=== PATIENT | female | born 1965 | race Caucasian/White ===

== ENCOUNTER 2016-06-20 13:58 | Emergency (ER) | payer OTHER ==
[2016-06-20 14:08] VITALS: RESP 16
--- NOTE | 2016-06-20 14:45 | UCPHY ---
H & P Patient Type: Established Chief Complaint Nursing Narrative: R ear pain since last night getting worse today. Feels she might have ear infection. denies fever or drainage. HPI/ROS: CHIEF COMPLAINT: Right ear pain. HISTORY OF PRESENT ILLNESS: The patient is a 51-year-old otherwise healthy female who presents with right ear pain since yesterday. She denies associated fever, sore throat, rhinorrhea, eye discharge, sinus drainage, or recent travel /deep sea diving experiences. No ear drainage or hearing loss. No tinnitus. She has no history of similar symptoms. She has been treating the discomfort with Claritin and Ibuprofen. REVIEW OF SYSTEMS: A ten point review of systems was performed and is negative with the exception of the items mentioned in the HPI. Source: Patient Exam Limitations: No limitations - Personal History LMP (Females 10-55): Post Menopausal Current Tetanus Diphtheria and Acellular Pertussis (TDAP): Yes - Medical/Surgical History Hx Asthma: No Hx Chronic Respiratory Disease: No Hx Diabetes: No Hx Cardiac Disease: No Hx Renal Disease: No Hx Cirrhosis: No Hx Alcoholism: No Hx HIV/AIDS: No Hx Splenectomy or Spleen Trauma: No Other PMH: remote hx of cervical cancer - Family History Significant Family History: No pertinent family hx - Social History Smoking Status: Never smoked Additional Social History: Nonsmoker. - Physical Exam Exam: General Appearance: Alert. Vital signs reviewed. Head: No mastoid tenderness, erythema, swelling. Eyes: Pupils equal and round, no conjunctival injection, no discharge. Anicteric. ENT, Mouth: Mucous membranes are moist, no oropharyngeal erythema or edema. No tooth pain with percussion. EACs normal, TMs normal--no erythema, bulging, vesicles. No pain with movement of pinna. Neck: No lymphadenopathy, supple. Respiratory: Lungs are clear to auscultation; no wheezes, rales, or rhonchi. Cardiovascular: Regular rate and rhythm; no murmur, rub, or gallop. Gastrointestinal: Abdomen is soft and nontender, no masses or organomegaly, bowel sounds normal. Skin: Warm and dry, no rashes on exposed skin, normal color. Back: Nontender to palpation over the thoracolumbar spine. No CVAT. Extremities: No lower extremity edema, no calf tenderness or swelling. Neurological: Alert and oriented. Moving all four extremities easily and equally. Psychiatric: Normal affect. Constitutional: Initial Vital Signs Temperature (C) 36.4 C 06/20/16 14:07 Heart Rate 80 06/20/16 14:07 Respiratory Rate 16 06/20/16 14:07 Blood Pressure 133/88 H 06/20/16 14:07 O2 Sat (%) 97 06/20/16 14:07 O2 Delivery Mode Room Air Allergies/Adverse Reactions: cephalexin [From Keflex] Allergy (Verified 06/20/16 14:06) fentanyl Allergy (Verified 06/20/16 14:05) meperidine HCl [From Demerol] Allergy (Verified 06/20/16 14:05) Home Medications: Medication Instructions Recorded Hydrocodone/APAP 5/325 [[place] 1 - 2 tab PO Q4 PRN #10 tab 06/20/16 5/325 (RX)] Multivitamin 06/20/16 Medical Decision Making ED Course/Re-evaluation: 51-year-old female presents with right ear pain since yesterday. She denies any associated symptoms. No barotrauma. She has a normal exam. Her right TM has a normal appearance. She has no recent head trauma or dental procedures. I do not see any evidence of infection in this patient. I don't think antibiotic treatment would help. I have prescribed [place] for pain control and she understands to follow up with her PCP for reevaluation of ongoing symptoms. Differential Diagnosis: DDX includes but is not limited to external otitis, otitis media, barotrauma, Departure - Departure Disposition: Home, Routine, Self-Care Clinical Impression: Right ear pain Condition: Good Instructions: Earache (ED) Additional Instructions: Follow up with your primary care provider this week for ongoing ear pain. Take Vicodin as prescribed for ear pain. Return for any serious worsening of condition. Referrals: ARPITA ARTEAGA [Primary Care Provider] - As per Instructions Prescriptions: Hydrocodone/APAP 5/325 [[place] 5/325 (RX)] 1 - 2 tab PO Q4 PRN #10 tab PRN Reason: pain - PQRS PQRS Measurement: Does not apply Report Scribed for: Daniella Catalan Report Scribed by: Sergei Moseley Date of Report: 06/20/16 Time of Report: 14:49 Physician Review and Approval Statement: 06/20/16 14:45 Portions of this note were transcribed by the medical malpractice paralegal. I, Dr. Daniella Catalan, personally performed the history, physical exam, and medical decision- making; and confirmed the accuracy of the information in the transcribed note.
[2016-06-20 15:02] VITALS: BP 128/84; PULSE 81; TEMP 97.9; O2SAT 96
== END 2016-06-20 15:00 | disposition home or self-care (01) ==
LOC: CED 13:58
DX: H92.01 Otalgia, right ear (principal)
CPT/HCPCS: 99214-PO; G0463-PO

== ENCOUNTER → 2017-08-05 | Outpatient (CLI) | payer OTHER | LOC: FIMAGING 15:47 | PROVIDERS: ATTEND Family Medicine | DX: N94.9 Unspecified condition associated with female genital organs and menstrual cycle (principal); N85.2 Hypertrophy of uterus; N83.9 Noninflammatory disorder of ovary, fallopian tube and broad ligament, unspecified ==

== ENCOUNTER → 2017-08-12 | Outpatient (CLI) | payer OTHER | LOC: FIMAGING 07:48 | PROVIDERS: ATTEND Family Medicine | DX: Z12.31 Encounter for screening mammogram for malignant neoplasm of breast (principal) ==

== ENCOUNTER 2017-10-10 10:45 | Day surgery (SDC) | payer OTHER ==
[2017-10-10] MEDS ORDERED: LR 1,000 ML IV ONE (11:21)
--- NOTE | 2017-10-10 12:39 | PDGENHP ---
History & Physical Chief Complaint: Screening colonoscopy History of Present Illness: Screening colonoscopy with MAC Pertinent Past, Social, Family History: PMH: cervical cancer. PSH: EUGENIO. FH: negative for colon cancer. SH: No Tob or ETOH Relevant Physical Exam: NAD. NC/AT. OP clear. Neck supple. CTA B/L. RRR without m/r/g. GI soft. NABS. NT/ND. No HSM. Normal gait and station. Normal ROM Cardiorespiratory Assessment: ASA II. Colonoscopy with MAC
[2017-10-10] MEDS ORDERED: PROPOFOL 200 MG/20 ML VIAL ONE ×2 (12:50)
[2017-10-10] MEDS ORDERED: LIDOCAINE 2% 100 MG/5 ML SYR ONE (12:52)
[2017-10-10] MEDS ORDERED: ONDANSETRON 4 MG/2 ML VIAL IVP PRN (13:10)
[2017-10-10] MEDS ORDERED: PHENYLEPHRINE HCL 100 MCG/ML SYR IVP PRN (13:10)
[2017-10-10] MEDS ORDERED: DEXAMETHASONE 4 MG/ML VIAL IVP PRN (13:10)
[2017-10-10] MEDS ORDERED: PROMETHAZINE HCL 25 MG/ML INJ IVP PRN (13:10)
[2017-10-10] MEDS ORDERED: NALOXONE HCL 0.4 MG/ML INJ IVP PRN (13:10)
[2017-10-10] MEDS ORDERED: LR 500 ML IV PRN (13:10)
[2017-10-10] MEDS ORDERED: ACETAMINOPHEN 500 MG TAB PO PRN (13:10)
[2017-10-10] MEDS ORDERED: LABETALOL HCL 5 MG/ML 20 ML MDV IVP PRN (13:10)
[2017-10-10] MEDS ORDERED: ALBUTEROL 3 ML DEYVIAL IH PRN (13:10)
--- NOTE | 2017-10-10 13:10 | PDANEPAE ---
ANE History of Present Illness colonsocopy ANE Past Medical History - Cardiovascular History Hx Hypertension: No Hx Arrhythmias: No Hx Chest Pain: No Hx Coronary Artery / Peripheral Vascular Disease: No Hx CHF / Valvular Disease: No Hx Palpitations: No - Pulmonary History Hx COPD: No Hx Asthma/Reactive Airway Disease: No Hx Recent Upper Respiratory Infection: No Hx Oxygen in Use at Home: No Hx Sleep Apnea: No Sleep Apnea Screening Result - Last Documented: Negative - Neurologic History Hx Cerebrovascular Accident: No Hx Seizures: No Hx Dementia: No - Endocrine History Hx Diabetes: No - Renal History Hx Renal Disorders: No - Liver History Hx Hepatic Disorders: No - Neurological & Psychiatric Hx Hx Neurological and Psychiatric Disorders: No - Cancer History Hx Cancer: No Cancer History Comment: CERVICAL CA AGE 25. RECURRENCE 6 YRS AGO - RADIATION AND CHEMO - Congenital Disorder History Hx Congenital Disorders: No - GI History Hx Gastrointestinal Disorders: No - Other Health History Other Health History: NEG - Chronic Pain History Chronic Pain: No - Surgical History Prior Surgeries: C SECTION. TUBAL LIGATION ANE Review of Systems Review of Systems: - Exercise capacity METS (RN): 5 METS ANE Patient History - Allergies Allergies/Adverse Reactions: cephalexin [From Keflex] Allergy (Verified 10/03/17 14:47) Hives fentanyl Allergy (Verified 10/03/17 14:47) Hives latex Allergy (Verified 10/03/17 14:47) Rash meperidine HCl [From Demerol] Allergy (Verified 10/03/17 14:47) Hives - Home Medications Home medications: home medication list seen and reviewed Home Medications: Multivitamin 06/20/16 [Last Taken Unknown] Calcium 10/03/17 [Last Taken 10/03/17] - NPO status NPO Status: no food or drink >8 hours NPO Since - Liquids (Date): 10/10/17 NPO Since - Liquids (Time): 03:00 NPO Since - Solids (Date): 10/09/17 NPO Since - Solids (Time): 08:00 - Anes Hx Anes Hx: no prior problems - Smoking Hx Smoking Status: Never smoked - Alcohol Use Alcohol Use: Rarely - Family Anes Hx Family Anes Hx: none Family Hx Anesthesia Complications: NONE ANE Labs/Vital Signs - Vital Signs Blood Pressure: 122/88 Heart Rate: 65 Respiratory Rate: 15 O2 Sat (%): 96 Height: 165.1 cm Weight: 67.132 kg ANE Physical Exam - Airway Neck exam: FROM Mallampati Score: Class 2 Mouth exam: normal dental/mouth exam - Pulmonary Pulmonary: no respiratory distress - Cardiovascular Cardiovascular: regular rate and rhythym - ASA Status ASA Status: I ANE Anesthesia Plan Anesthesia Plan: GA with mask Total IV Anesthesia: Yes Urgent/Emergent Case: Lexus bridges completed preop but documented later for safe timely pt care
--- NOTE | 2017-10-10 13:20 | GIREPORT ---
Formerly [facility] Surgical Services - Endoscopy Department Patient Name: Lenora Monroe Procedure Date: 10/10/2017 12:21 PM Patient Type: Outpatient Attending / ER Physician: Chapin Pruitt MD Procedure: Colonoscopy Indications: Screening for colorectal malignant neoplasm Providers: Chapin Pruitt MD Medicines: Propofol per Anesthesia Complications: No immediate complications. Description of Procedure: After obtaining informed consent, the scope was passed under direct vis ion. Throughout the procedure, the patient's blood pressure, pulse, and oxyg en saturations were monitored continuously. The Colonoscope was introduced through the anus and advanced to the cecum, identified by appendiceal orifice and ileocecal valve. The colonoscopy was performed without difficulty. The patient tolerated the procedure well. The quality of th e bowel preparation was excellent. The ileocecal valve, appendiceal orifi ce, and rectum were photographed. Findings: The perianal and digital rectal examinations were normal. Pertinent negatives include normal sphincter tone and no palpable rectal lesions. A 6 mm polyp was found in the transverse colon. The polyp was sessile. The polyp was removed with a cold biopsy forceps. Resection and retrieval w ere complete. Estimated Blood Loss: Estimated blood loss: none. Post Op Diagnosis: - One 6 mm polyp in the transverse colon, removed with a cold biopsy forceps. Resected and retrieved. Recommendation: - Await pathology results. - Repeat colonoscopy in 5 years for surveillance. - Resume previous diet. - Continue present medications. - Patient has a contact number available for emergencies. The signs and symptoms of potential delayed complications were discussed with the pat ient. Return to normal activities tomorrow. Written discharge instructions we re provided to the patient. - Thank you for allowing me to be involved in the care of your patient. Attending Participation: I personally performed the entire procedure without the assistance of a fellow, resident or surg ical assistant reading teacher. Chapin Pruitt MD Chapin Pruitt MD 10/10/2017 1:19:39 PM This report has been signed electronicallyDavid MD Sonal Number of Addenda: 0 Note Initiated On: 10/10/2017 12:21 PM Total Procedure Duration Time 0 hours 17 minutes 40 seconds [email or web address]
--- NOTE | 2017-10-10 13:54 | POSTANESTH ---
Post Anesthetic Evaluation Cardiovascular Status: Normal, Stable Respiratory Status: Normal, Stable Level of Consciousness/Mental Status: Can Participate in Eval Pain Control: Adequate, Prn Tx Ordered Nausea/Vomiting Control: Adequate, Prn Tx Ordered Complications Possibly Related to Anesthesia: None Noted
[2017-10-10 14:38] VITALS: BP 126/90
== END 2017-10-10 14:41 | disposition home or self-care (01) ==
LOC: FSGY 10:45
PROVIDERS: ATTEND Internal Medicine Gastroenterology
PROC: 0DBL8ZX Excision of Transverse Colon, Via Natural or Artificial Opening Endoscopic, Diagnostic (ICD-10-PCS; principal; 2017-10-10 12:45)
DX: D12.3 Benign neoplasm of transverse colon (principal)
CPT/HCPCS: J2001; J2704

== ENCOUNTER → 2017-11-08 | Outpatient (CLI) | payer OTHER | LOC: FIMAGING 06:50 | PROVIDERS: ATTEND Family Medicine | DX: N83.291 Other ovarian cyst, right side (principal); D25.9 Leiomyoma of uterus, unspecified ==

== ENCOUNTER 2018-01-13 06:40 | Day surgery (SDC) | payer OTHER ==
[2018-01-13] MEDS ORDERED: LR 1,000 ML IV ONE (07:06)
[2018-01-13] MEDS ORDERED: SCOPOLAMINE HYDROBROMIDE 1 MG/3 DAYS PATCH TD ONE (07:57)
[2018-01-13] MEDS ORDERED: MIDAZOLAM 2 MG/2 ML VIAL IVP ONE (07:57)
--- NOTE | 2018-01-13 08:04 | PDANEPAE ---
ANE History of Present Illness pelvic pain ANE Past Medical History - Cardiovascular History Hx Hypertension: No Hx Arrhythmias: No Hx Chest Pain: No Hx Coronary Artery / Peripheral Vascular Disease: No Hx CHF / Valvular Disease: No Hx Palpitations: No - Pulmonary History Hx COPD: No Hx Asthma/Reactive Airway Disease: No Hx Recent Upper Respiratory Infection: No Hx Oxygen in Use at Home: No Hx Sleep Apnea: No Sleep Apnea Screening Result - Last Documented: Negative - Neurologic History Hx Cerebrovascular Accident: No Hx Seizures: No Hx Dementia: No - Endocrine History Hx Diabetes: No Hypothyroid: No Hyperthyroid: No Obesity: no - Renal History Hx Renal Disorders: No - Liver History Hx Hepatic Disorders: No - Neurological & Psychiatric Hx Hx Neurological and Psychiatric Disorders: No - Cancer History Hx Cancer: Yes Cancer History Comment: CERVICAL CA AGE 25. RECURRENCE 6 YRS AGO - RADIATION AND CHEMO - Congenital Disorder History Hx Congenital Disorders: No - GI History GERD: no Hx Gastrointestinal Disorders: Yes Gastrointestinal History Comment: POLYPS - Other Health History Other Health History: OVARIAN CYST - Chronic Pain History Chronic Pain: Yes (RT SIDE OF ABDOMEN) - Surgical History Prior Surgeries: COLONOSCOPY 10/2017. C SECTION. TUBAL LIGATION ANE Review of Systems Review of Systems: - Exercise capacity METS (RN): 5 METS ANE Patient History - Allergies Allergies/Adverse Reactions: cephalexin [From Keflex] Allergy (Verified 10/03/17 14:47) Hives fentanyl Allergy (Verified 10/03/17 14:47) Hives latex Allergy (Verified 10/03/17 14:47) Rash meperidine HCl [From Demerol] Allergy (Verified 10/03/17 14:47) Hives - Home Medications Home Medications: Multivitamins [Multivitamin (*)] 1 each PO DAILY 06/20/16 [Last Taken 01/09/18] Calcium Carbonate [Oyster Shell Calcium 500 mg (*)] 500 mg PO DAILY 10/03/17 [ Last Taken 01/09/18] Acetaminophen [Tylenol 325mg (*)] 325 mg PO DAILY PRN 01/02/18 [Last Taken 01/09] Ibuprofen [Motrin (*)] 200 mg PO DAILY PRN 01/02/18 [Last Taken 01/09/18] - NPO status NPO Since - Liquids (Date): 01/12/18 NPO Since - Liquids (Time): 03:00 NPO Since - Solids (Date): 01/12/18 NPO Since - Solids (Time): 20:00 - Anes Hx Anes Hx: no prior problems - Smoking Hx Smoking Status: Never smoked - Family Anes Hx Family Anes Hx: none Family Hx Anesthesia Complications: NONE ANE Labs/Vital Signs - Vital Signs Blood Pressure: 119/88 Heart Rate: 82 Respiratory Rate: 15 O2 Sat (%): 96 Height: 165.1 cm Weight: 65.771 kg ANE Physical Exam - Airway Neck exam: FROM Mallampati Score: Class 1 Mouth exam: normal dental/mouth exam - Pulmonary Pulmonary: no respiratory distress - Cardiovascular Cardiovascular: regular rate and rhythym - ASA Status ASA Status: II ANE Anesthesia Plan Anesthesia Plan: general endotracheal anesthesia
[2018-01-13] MEDS ORDERED: ONDANSETRON 4 MG/2 ML VIAL ONE (08:05)
[2018-01-13] MEDS ORDERED: PROPOFOL 200 MG/20 ML VIAL ONE (08:05)
[2018-01-13] MEDS ORDERED: ROCURONIUM 50 MG/5 ML VIAL ONE ×2 (08:05→09:13)
[2018-01-13] MEDS ORDERED: HYDROmorphONE/DILAUDID 2 MG/ML INJ ONE (08:05)
[2018-01-13] MEDS ORDERED: LIDOCAINE 2% 5 ML SDV ONE (08:06)
[2018-01-13] MEDS ORDERED: DEXAMETHASONE 4 MG/ML VIAL ONE ×2 (08:06)
[2018-01-13] MEDS ORDERED: BUPIVACAINE/EPI 0.5% 30 ML SDV ONE (08:09)
--- NOTE | 2018-01-13 08:21 | PDGENHP ---
History & Physical Chief Complaint: Adnexal mass History of Present Illness: Lenora is a 52 yo perimenopausal female who I met with in clinic regarding adnexal mass, assymptomatic. We discussed concern for cancer is low, but discussed RBA of laparoscopic removal. If needing to remove that ovary, she would like to remove both ovaries. Pertinent Past, Social, Family History: Non-contributory. Relevant Physical Exam: NAD, pleasant. Belly soft, NT/ND. Assessment and Plan Assessment: Preop: LS BSO, for unilateral adnexal mass. - Routine preop orders, no need for abx. - Likely home from PACU after 1-2 hours. - Cyst will be sent for permanent, not frozen. AMRIK
[2018-01-13] MEDS ORDERED: KETOROLAC 30 MG/1 ML SDV ONE (08:54)
[2018-01-13] MEDS ORDERED: SUGAMMADEX SODIUM 200 MG/2 ML VIAL IVP ONE (09:38)
[2018-01-13] MEDS ORDERED: PROMETHAZINE HCL 25 MG/ML INJ IVP PRN (09:49)
[2018-01-13] MEDS ORDERED: ALBUTEROL 3 ML DEYVIAL IH PRN (09:49)
[2018-01-13] MEDS ORDERED: LABETALOL HCL 5 MG/ML 20 ML MDV IVP PRN (09:49)
[2018-01-13] MEDS ORDERED: NALOXONE HCL 0.4 MG/ML INJ IVP PRN (09:49)
[2018-01-13] MEDS ORDERED: HYDROmorphONE/DILAUDID 2 MG/ML INJ IVP PRN (09:49)
[2018-01-13] MEDS ORDERED: LR 500 ML IV PRN (09:49)
[2018-01-13] MEDS ORDERED: ACETAMINOPHEN 500 MG TAB PO PRN (09:49)
[2018-01-13] MEDS ORDERED: METOCLOPRAMIDE 10 MG/2 ML VIAL IVP PRN (09:49)
[2018-01-13] MEDS ORDERED: oxyCODONE IR 5 MG TAB PO PRN (09:49)
--- NOTE | 2018-01-13 09:59 | POSTOPPROG ---
Post Op Note Date of Operation: 01/13/18 Surgeon: Surjit Barker
[2018-01-13 10:50] VITALS: BP 122/79
[2018-01-14] MEDS ORDERED: PATCH REMOVAL 1 EA PATCH TD ONE (07:58)
== END 2018-01-13 11:21 | disposition home or self-care (01) ==
LOC: F3N 06:40 → UNDOADMOB 06:40 → FSGY 06:40 → EDSTATUS 08:15 → UNDODISOB 11:21 → FSGY 11:21
PROVIDERS: ATTEND Obstetrics & Gynecology
DX: N83.01 Follicular cyst of right ovary (principal); N83.292 Other ovarian cyst, left side; N83.8 Other noninflammatory disorders of ovary, fallopian tube and broad ligament
CPT/HCPCS: J1100; J1170; J1885; J2250; J2405; J2704

== ENCOUNTER 2018-02-04 21:28 | Observation (INO) | payer OTHER ==
--- NOTE | 2018-02-04 21:46 | EDPHY ---
H & P Smoking Status: Never smoked Time Seen by Provider: 02/04/18 21:41 HPI/ROS: Chief complaint. Abdominal pain HPI. Patient is a 52-year-old female with left-sided abdominal pain. She had an ultrasound in November which showed a complex cystic lesion on the right ovary. On January 13 she had laparoscopic surgery for the adnexal mass and had bilateral salpingo oophorectomy. 10 days ago she had sharp pain at the left lower laparoscopic site. She saw her surgeon who felt that may be a pulled muscle in indeed the pains seem to somewhat get better. However last evening she vomited and has worsening abdominal pain that is now to the left mid abdomen and radiating through to her back. It hurts with movement and lying down stretched out. She had chills last night but has not had a fever. She has no urinary symptoms. No chest pain or shortness of breath. ROS 10 systems were reviewed and negative with the exception of the elements mentioned in the history of present illness (Roosevelt Garcia) Past Medical/Surgical History: Recent bilateral salpingo oophorectomy (Roosevelt Garcia) Social History: Single, nonsmoker, no alcohol (Roosevelt Garcia) Physical Exam: General Appearance: Alert pleasant well-developed female mild distress. Vital signs are stable though heart rate is 97 Eyes: Pupils equal and round no pallor or injection. ENT, Mouth: Mucous membranes are moist. Respiratory: There are no retractions, lungs are clear to auscultation. Cardiovascular: Regular rate and rhythm. Gastrointestinal: Abdomen is soft with well-healed laparoscopic incision sites. She is slightly tender at the lower left laparoscopic incision site but is tender in the left mid abdomen to palpation. No masses are palpable. Decreased bowel sounds are noted Neurological: Awake and alert, sensory and motor exams grossly normal. Skin: Warm and dry, no rashes. Musculoskeletal: Neck is supple nontender. Extremities symmetrical, full range of motion. Psychiatric: Patient is oriented X 3, there is no agitation. (Roosevelt Garcia) Constitutional: Initial Vital Signs Temperature (C) 37.6 C 02/04/18 21:41 Heart Rate 97 02/04/18 21:41 Respiratory Rate 14 02/04/18 21:41 Blood Pressure 122/85 H 02/04/18 21:41 O2 Sat (%) 97 02/04/18 21:41 O2 Delivery Mode Room Air Allergies/Adverse Reactions: cephalexin [From Keflex] Allergy (Verified 02/04/18 21:39) Hives fentanyl Allergy (Verified 02/04/18 21:39) Hives latex Allergy (Verified 02/04/18 21:39) Rash meperidine HCl [From Demerol] Allergy (Verified 02/04/18 21:39) Hives Home Medications: Medication Instructions Recorded Calcium Carbonate [Oyster Shell 1,000 mg PO DAILY 02/05/18 Calcium 500 mg (*)] Cholecalciferol Vit D3 [Vitamin D3 2,000 units PO DAILY 02/05/18 2000 units tab (OTC)] Estradiol 1 mg PO DAILY 02/05/18 Estradiol/Norethindrone Acet 1 each TD MOFR 02/05/18 [Combipatch 0.05-0.14 mg Ptch] Multivitamins [Multivitamin (*)] 1 each PO DAILY 02/05/18 Ibuprofen [Motrin (*)] 600 mg PO Q6HRS PRN #30 tab 02/06/18 Sulfamethox/Tmp 800/160 mg 1 ea PO BID #14 tab 02/06/18 [Bactrim DS] metroNIDAZOLE [Flagyl 500 mg (*)] 500 mg PO Q8HRS #20 tab 02/06/18 oxyCODONE IR [Oxycodone Ir (*)] 5 mg PO Q4HRS PRN #20 tab 02/06/18 Medical Decision Making Procedures: IV normal saline. Patient declines medication for pain or nausea at this time ( Roosevelt Garcia) ED Course/Re-evaluation: Accepted care of the patient from Dr. Garcia. History, physical, on going workup discussed. Awaiting CT results with concerns for possible postsurgical complication. Patient comfortable requesting no pain medications. Discussed CT scan result with Dr. Parker. CT shows intra-abdominal fluid collection on the left side measuring 6 x 6 x 5 cm. Cystic versus seroma versus abscess. It is rim enhancing. Located in the left iliopsoas fossa. Also multiple leiomyomas as noted on previous studies. (Fadia Le) POC urine dip shows no evidence for urinary tract infection or blood. Somewhat concentrated with specific gravity of 1.030 POC CBC shows 12.3 white blood cell count. Hematocrit 37.4 (Roosevelt Garcia) Differential Diagnosis: Differential diagnosis includes but is not limited to postop infection, postop bleeding, postop abscess or seroma. No bowel obstruction, perforation, sepsis, UTI identified. Patient with large 6 x 6 x 5 cm ring enhancing fluid collection in the left iliopsoas fossa and in discussion with JIMMY Oneill, plan is for observation admission with likely percutaneous drainage by interventional Radiology tomorrow. Patient requesting to be transferred to [facility] by private vehicle. She has had no analgesic or other sedating medication and I feel this is a reasonable transportation option. She understands to go straight to the hospital without any stops and will be a direct admit. (Fadia Le) Care Turn Over: care to at 11 pm (Roosevelt Garcia) - Data Points Medications Given: Discontinued Medications Acetaminophen (Tylenol) 1,000 mg PO Q8HRS MAJOR Stop: 08/04/18 05:59 Last Admin: 02/06/18 10:34 Dose: 1,000 mg Diphenhydramine HCl (Benadryl Cream) 1 pedro pablo TP QID PRN PRN Reason: Itching Stop: 08/04/18 12:04 Last Admin: 02/05/18 12:19 Dose: 1 pedro pablo Sodium Chloride (Ns) 1,000 mls @ 0 mls/hr IV EDNOW ONE; Wide Open PRN Reason: Protocol Stop: 02/04/18 22:05 Last Admin: 02/04/18 22:18 Dose: 1,000 mls Lactated Ringer's (Lr) 1,000 mls @ 125 mls/hr IV CONT MAJOR Stop: 08/04/18 02:29 Last Admin: 02/05/18 11:06 Dose: 1,000 mls Ibuprofen (Motrin) 600 mg PO Q6HRS PRN PRN Reason: Pain, Mild Stop: 08/05/18 09:40 Last Admin: 02/06/18 10:34 Dose: 600 mg Metronidazole (Flagyl) 500 mg PO Q8HRS MAJOR PRN Reason: Protocol Stop: 03/07/18 21:59 Last Admin: 02/06/18 05:50 Dose: 500 mg Midazolam HCl (Versed) 0 mg IVP ONCALL PRN PRN Reason: Per provider during procedure Stop: 02/05/18 14:37 Last Admin: 02/05/18 14:00 Dose: 2 mg Morphine Sulfate (Morphine) 2 - 4 mg IVP Q2HRS PRN PRN Reason: Pain, Severe Unable to Take PO Stop: 02/15/18 02:23 Last Admin: 02/05/18 10:35 Dose: 4 mg Ondansetron HCl (Zofran) 4 mg IVP Q4HRS PRN PRN Reason: Nausea/Vomiting, Can't Take PO Stop: 08/04/18 02:23 Last Admin: 02/05/18 15:39 Dose: 4 mg Ondansetron HCl (Zofran Odt) 4 mg PO Q4HRS PRN PRN Reason: Nausea/Vomiting, Use 1st Stop: 08/04/18 02:23 Last Admin: 02/05/18 14:00 Dose: 4 mg Oxycodone HCl (Oxycodone Ir) 5 mg PO Q4HRS PRN PRN Reason: Pain, Severe Able to Take PO Stop: 02/15/18 11:32 Last Admin: 02/06/18 08:49 Dose: 5 mg Trimethoprim/Sulfamethoxazole (Bactrim Ds) 1 ea PO BID MAJOR PRN Reason: Protocol Stop: 03/07/18 21:14 Last Admin: 02/06/18 08:50 Dose: 1 ea Zolpidem Tartrate (Ambien) 5 mg PO HS PRN PRN Reason: Sleep/Insomnia, use 1st Stop: 08/04/18 02:23 Last Admin: 02/05/18 22:00 Dose: 5 mg Point of Care Test Results: CBC CBC Collection Date 02/04/18 CBC Collection Time 22:05 WBC 12.3 RBC 4.3 HGB 12.5 HCT 37.4 PLT 393 Neut # 8.4 Neut 68.2 LYMPH # 2.9 LYMPH 23.4 Other WBC # 1 Other WBC 8.4 MCV 87 Chemistry 02/04/18 22:24 POC Sodium 139 mEq/L mEq/L (135-145) POC Potassium 3.6 mEq/L mEq/L (3.3-5.0) POC Chloride 103.0 mEq/L mEq/L (97-110) POC Total CO2 25 mEq/L mEq/L (22-31) POC BUN 14 mg/dL mg/dL (7-23) POC Creatinine 0.5 mg/dL L mg/dL (0.6-1.0) POC Glucose 101 mg/dL H mg/dL (70-100) POC Calcium 9.5 mg/dL mg/dL (8.5-10.4) Urine Dip Collection Date 02/04/18 Collection Time 22:15 Specific [place] (1.002-1.030) 1.030 PH (5.0-7.5) 6.0 Leukocytes (Negative) Negative Nitrites (Negative) Negative Protein (Negative) Negative Glucose (Negative) Negative Ketones (Negative) Trace Urobilnogen (0.2-1.0 EU) 0.2 Bilirubin (Negative) Negative Blood (Negative) Negative Departure - Departure Disposition: [facility]
[2018-02-04] MEDS ORDERED: NS 1,000 ML IV ONE (22:04)
[2018-02-04] MEDS ORDERED: IOPAMIDOL (ISOVUE-300) 100 ML BTL ONE (22:19)
--- NOTE | 2018-02-05 02:06 | PDGENHP ---
History and Physical - Chief Complaint LLQ pain - History of Present Illness 52 yo 3 wk s/p l'nkechiic BSO by Dr. Barker 01/13/18, with the onset of left sided pain 10 d ago, gradually improved, until yesterday, when had nausea, vomiting and diarrhea, and pain increased significantly. Pain gradually worsened through the day until she presented to the [facility] - ED in [place]. CT scan done and noted 6.6 x 5 x 8cm rim enhancing fluid collection in left iliopsoas fossa. Pain at rest = 4, pain with movement, stretching out, lying flat, increases to 6 -8. No urinary symptoms. Possible mild fever with N/V/diarrhea. Review of op note - surgery uncomplicated and pathology - all benign. History Information - Allergies/Home Medication List Allergies/Adverse Reactions: cephalexin [From Keflex] Allergy (Verified 02/04/18 21:39) Hives fentanyl Allergy (Verified 02/04/18 21:39) Hives latex Allergy (Verified 02/04/18 21:39) Rash meperidine HCl [From Demerol] Allergy (Verified 02/04/18 21:39) Hives Home Medications: Estrogen,Con/M-Progest Acet [Prempro 0.45-1.5 mg Tablet] 02/04/18 [Last Taken Unknown] Estrogens, Conjugated [PREMARIN] 02/04/18 [Last Taken Unknown] Estradiol/Norethindrone Acet [Combipatch 0.05-0.14 mg Ptch] 1 each TD MOFR 02/05 [Last Taken Unknown] I have personally reviewed and updated: family history, medical history, social history, surgical history Past Medical History: cervical cancer age 25 - had chemo and radiation, no recurrence, gets pap smears regularly. uterine fibroids - has had uterine artery embolization, about 12 years ago. - Surgical History Additional surgical history: C/S, followed by . tubal ligation. 2005 uterine artery embolization for fibroids. 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 [employer] Review of Systems Review of Systems: ROS: 10pt was reviewed & negative except for what was stated in HPI & below Physical Exam Physical Exam: Temp Pulse Resp BP Pulse Ox 37.4 C 91 15 133/86 H 97 02/05/18 01:23 02/05/18 01:23 02/05/18 01:23 02/05/18 01:23 02/05/18 01:23 Constitutional: no apparent distress, appears nourished Eyes: PERRL, anicteric sclera, EOMI Ears, Nose, Mouth, Throat: moist mucous membranes, hearing normal, ears appear normal Cardiovascular: regular rate and rhythym, no murmur, rub, or gallop Respiratory: no respiratory distress, no rales or rhonchi, clear to auscultation Gastrointestinal: normoactive bowel sounds, no palpable masses, guarding (in LLQ , no rebound, well healing l'scopic incisions x 3) Genitourinary: no bladder fullness, no bladder tenderness, other (pelvic exam not performed here on floor) Skin: warm, normal color Musculoskeletal: full muscle strength Neurologic: AAOx3, sensation intact bilaterally Psychiatric: interacting appropriately Lymph, Heme, Immunologic: no cervical LAD Lab Data & Imaging Review POC Sodium 139 mEq/L (135-145) 02/04/18 22:24 POC Potassium 3.6 mEq/L (3.3-5.0) 02/04/18 22:24 POC Chloride 103.0 mEq/L (97-110) 02/04/18 22:24 POC Total CO2 25 mEq/L (22-31) 02/04/18 22:24 POC BUN 14 mg/dL (7-23) 02/04/18 22:24 POC Creatinine 0.5 mg/dL (0.6-1.0) L 02/04/18 22:24 POC Glucose 101 mg/dL (70-100) H 02/04/18 22:24 POC Calcium 9.5 mg/dL (8.5-10.4) 02/04/18 22:24 from [facility]: WBC 12.3 hgb 12.5 hct 37.4 plt 393 Assessment & Plan Assessment: 52 S1 with LLQ pain - most likely related to 6x8cm fluid collection over left iliopsoas fossa, rim enhancing. Mildly elevated WBC. Hemodynamically stable. Plan: Admit to obs, IV morphine for pain control, NPO, repeat CBC in AM Will give report to Dr. Zepeda in AM, who will reassess, and assess for intervention - whether surgical or interventional radiology consult to consider percutaneous drainage. Iris Stewart MD, [facility]
[2018-02-05] MEDS ORDERED: ZOLPIDEM TARTRATE 5 MG TAB PO PRN (02:24)
[2018-02-05] MEDS ORDERED: ONDANSETRON DISINTEGRATING 4 MG TAB PO PRN (02:24)
[2018-02-05] MEDS: LR 1,000 ML IV SCH ×2 (03:29→11:06)
[2018-02-05] MEDS: ONDANSETRON 4 MG/2 ML VIAL IVP PRN ×2 (03:29→15:39)
[2018-02-05] MEDS: ACETAMINOPHEN 500 MG TAB PO SCH ×2 (07:26→17:47)
[2018-02-05 08:29] LABS: PLATELET COUNT 322 10^3/uL (150-400)
--- NOTE | 2018-02-05 11:42 | SOAPPROG ---
SOAP Progress Note Assessment/Plan: Assessment: HD # 1 for fluid collection 3 weeks post laparoscopic BSO hct dropped after iv fluids - will recheck 4 hours post draw to ensure is stable IR consulted - will plan for drainage today or tomorrow add po pain meds continued observation Plan: 02/05/18 11:37 Subjective: patient is doing well overall. is having pain which is controlled with IV narcotics but those wear off quickly. discussed po pain meds. patient would like to switch to oxy ir which is what she took after her surgery. discussed drop in h and h. patients vitals are stable. will recheck h and h 4 hours after originally drawn to ensure they are stable. patient is npo awaiting IR drainage of fluid collection.. discussed indications for leaving a drain in. if procedure is not going to be done today will let her eat and continue to monitor closely. questions answered. patient understanding of IR needing to prioritize less stable patients. Objective: Vital Signs Temp Pulse Resp BP Pulse Ox 36.3 C 85 15 120/81 H 94 02/05/18 07:28 02/05/18 07:28 02/05/18 03:46 02/05/18 07:28 02/05/18 07:28 Laboratory Results 02/05/18 08:00 02/04/18 02/05/18 02/06/18 05:59 05:59 05:59 Intake Total 1550 Balance 1550 Physical Exam - Physical Exam General Appearance: WD/WN, alert, no apparent distress Neck: non-tender, full range of motion Respiratory: chest non-tender, lungs clear, normal breath sounds Cardiac/Chest: normal peripheral pulses, regular rate, rhythm Abdomen: normal bowel sounds, other (postitive abdominal tenderness ) Skin: normal color, warm/dry Extremities: normal range of motion, non-tender, normal inspection, normal capillary refill Neuro/Psych: no motor/sensory deficits, alert, normal mood/affect, oriented x 3 ICD10 Worksheet Patient Problems: Problems Problem Status Onset Adnexal mass Acute S/P BSO (bilateral salpingo-oophorectomy) Acute
[2018-02-05] MEDS ORDERED: DIPHENHYDRAMINE CREAM TP PRN (12:05)
[2018-02-05 12:16] LABS: PROTIME(PATIENT) 13.4 SEC (12.0-15.0)
--- NOTE | 2018-02-05 12:18 | PDPROPOC ---
Sedation Plan of Care ASA Classification: ASA 2 Mallampati Score: Class 2 Mallampati Reference Image:
[2018-02-05] MEDS: oxyCODONE IR 5 MG TAB PO PRN ×3 (12:19→22:00)
[2018-02-05] MEDS ORDERED: MIDAZOLAM 2 MG/2 ML VIAL ONE (13:18)
[2018-02-05] MEDS ORDERED: HYDROmorphONE/DILAUDID 2 MG/ML INJ ONE (13:18)
[2018-02-05] MEDS ORDERED: fentaNYL 100 MCG/2 ML INJ IVP PRN (13:37)
[2018-02-05] MEDS ORDERED: FLUMAZENIL 0.5 MG/5 ML MDV IVP PRN (13:37)
[2018-02-05] MEDS ORDERED: NALOXONE HCL 0.4 MG/ML INJ IVP PRN (13:37)
[2018-02-05] MEDS ORDERED: MIDAZOLAM 2 MG/2 ML VIAL IVP PRN (13:37)
[2018-02-05] MEDS ORDERED: NS 1,000 ML IV SCH (13:45)
--- NOTE | 2018-02-05 14:35 | PDRADPN ---
Radiology Procedure Note Date of Procedure: 02/05/18 Radiologist: Pastora Rothman Anesthesia: IV Sedation Pre-op Diagnosis: LLQ abscess Post-op Diagnosis: same Procedure: CT guided drain placement Finding(s): 8F drain placed after purulent serosanguinous fluid aspirated Inf/Abcess present in the surg proc area at time of surgery?: Yes Depth: Organ Space
[2018-02-05] MEDS ORDERED: ONDANSETRON 4 MG/2 ML VIAL IVP ONE (15:00)
[2018-02-05] MEDS ORDERED: HYDROmorphONE/DILAUDID 2 MG/ML INJ IVP ONE (15:00)
[2018-02-05] MEDS: SULFAMETHOX/TMP 800/160 MG 1 TAB PO SCH (21:59)
[2018-02-05] MEDS: metroNIDAZOLE 500 MG TAB PO SCH (21:59)
[2018-02-06] MEDS: oxyCODONE IR 5 MG TAB PO PRN ×2 (02:00→08:49)
[2018-02-06] MEDS: ACETAMINOPHEN 500 MG TAB PO SCH ×2 (02:00→10:34)
[2018-02-06] MEDS ORDERED: NORETHINDRONE ACET TD SCH (02:51)
[2018-02-06] MEDS ORDERED: ESTRADIOL TD SCH (02:51)
[2018-02-06] MEDS: metroNIDAZOLE 500 MG TAB PO SCH (05:50)
[2018-02-06 06:05] VITALS: BP 93/62
[2018-02-06] MEDS: SULFAMETHOX/TMP 800/160 MG 1 TAB PO SCH (08:50)
[2018-02-06] MEDS ORDERED: IBUPROFEN 600 MG TAB PO PRN (09:41)
--- NOTE | 2018-02-06 09:53 | SOAPPROG ---
SOAP Progress Note Assessment/Plan: Assessment: 52 y/o POD #1 s/p CT guided drainage of a pelvic abscess Plan: D/c home today with Rx Oxycodone, Ibuprofen, Bactrim and Flagyl. She is to flush the drain with 10 cc TID and make an apt with [facility] to schedule follow-up. 02/06/18 09:50 Subjective: Pt is feeling better today. She is still sore directly over the drainage site, but the pain is much better than yesterday and pain meds have helped. She is ambulating and voiding without difficulty and had a normal BM this am. She is tolerating reg diet, her antibiotics and pain meds. She is ready to d/c home. Objective: Vital Signs Temp Pulse Resp BP Pulse Ox 36.5 C 85 16 93/62 L 93 02/06/18 06:04 02/06/18 06:04 02/06/18 06:04 02/06/18 06:04 02/06/18 06:04 Microbiology 02/05/18 14:15 Gram Stain - Final Abdomen - Aspirate Laboratory Results 02/05/18 11:50 02/05/18 02/06/18 02/07/18 05:59 05:59 05:59 Intake Total 1550 2600 Output Total 75 Balance 1550 2525 PT 13.4 SEC (12.0-15.0) 02/05/18 11:50 INR 1.00 (0.83-1.16) 02/05/18 11:50 - Pending Discharge Pending Discharge Within 24 Hours: Yes Pending Discharge Date: 02/07/18 Pending Discharge Time: 11:00 Physical Exam - Physical Exam General Appearance: WD/WN, alert, no apparent distress Neck: non-tender, full range of motion, supple Respiratory: chest non-tender, lungs clear, normal breath sounds Cardiac/Chest: regular rate, rhythm Abdomen: normal bowel sounds, other (incision c/d/i) Extremities: swelling (no), Misa's sign (neg) ICD10 Worksheet Patient Problems: Problems Problem Status Onset Pelvic abscess in female Acute Adnexal mass Acute S/P BSO (bilateral salpingo-oophorectomy) Acute
--- NOTE | 2018-02-06 11:33 | GDS ---
ADMITTING DIAGNOSIS: Postoperative pelvic abscess. HISTORY OF PRESENT ILLNESS/HOSPITAL COURSE: Lenora is a 52-year-old, 3, para 2-0-1-2, who i s 3 weeks status post a laparoscopic BSO by Dr. Surjit Barker on 01/13/2018, who presented with n ew onset of left lower quadrant pain which was worsening in intensity over the course of several days . She presented to the emergency department on the and had a CT done that noted a 6.6 x 5 x 8 cm rim enhancing fluid collection in the left iliopsoas fossa. The patient was admitted for pain contr ol, IV fluids and monitoring. She had serial hemoglobins, which were relatively stable and she had a consult with Interventional Radiology on the who agreed that the abscess was amenable to CT-guid ed drainage. She underwent a CT-guided drainage on the and there was a fair amount purulent sero sanguineous fluid extruded with the procedure. The patient was admitted overnight for pain control a nd monitoring. This morning she feels much better. She still has soreness in the drain site, but th e pain is much less intense. She is afebrile and vital signs have been stable. She has minimal sero us drainage now. The patient will be discharged home with a drain in place with instructions to flus h the drain three times daily and to follow up with [facility] later this week for assessme nt of drainage and to schedule repeat imaging and drain removal when the drain is extruding less than 10 cc a day. The patient was empirically started on oral Bactrim and Flagyl because of the purulent drainage. She is tolerating these well. She will be discharged home on these medications in additi on to oxycodone and ibuprofen for pain control. The patient is to call the office for fever, redness , swelling at the drain site or severe nausea, vomiting, or any other complication. /[id number]/MODL
== END 2018-02-06 12:15 | disposition home or self-care (01) ==
LOC: CED 21:28 → FOB 02-05 01:00
PROVIDERS: ADMIT Hospitalist; ATTEND Obstetrics & Gynecology
PROC: 0D9W30Z Drainage of Peritoneum with Drainage Device, Percutaneous Approach (ICD-10-PCS; principal; 2018-02-05 14:40)
DX: K68.11 Postprocedural retroperitoneal abscess (principal); E86.9 Volume depletion, unspecified; D25.9 Leiomyoma of uterus, unspecified; Z85.41 Personal history of malignant neoplasm of cervix uteri; Z90.722 Acquired absence of ovaries, bilateral
CPT/HCPCS: 49406; 74177; 75989; 96360; 99152; 99285; G0378; 80048-PO; J1170; J2250; J2270; J2405; Q9967

== ENCOUNTER → 2018-02-09 | Day surgery (SDC) | payer OTHER ==
[~2018-02-09] MED LIST: IOPAMIDOL (ISOVUE-300) 100 ML BTL ONE
== END | disposition home or self-care (01) ==
LOC: FIMAGING 12:38
PROVIDERS: ATTEND Radiology Diagnostic Radiology
PROC: BW111ZZ Fluoroscopy of Abdomen and Pelvis using Low Osmolar Contrast (ICD-10-PCS; principal; 2018-02-09)
DX: T81.43XA Infection following a procedure, organ and space surgical site, initial encounter (principal)
CPT/HCPCS: Q9967

== ENCOUNTER → 2018-04-04 | Outpatient (CLI) | payer OTHER | LOC: FIMAGING 08:40 | PROVIDERS: ATTEND Family Medicine | DX: N63.20 Unspecified lump in the left breast, unspecified quadrant (principal) ==

== ENCOUNTER → 2018-08-09 | Outpatient (CLI) | payer OTHER | LOC: FIMAGING 07:42 ==

== ENCOUNTER → 2018-08-18 | Outpatient (CLI) | payer OTHER | LOC: FIMAGING 09:28 ==